=== PATIENT | female | born 1985 | race Caucasian/White ===

== ENCOUNTER 2022-04-20 09:53 | Inpatient (IN) ==
[2022-04-20] MEDS ORDERED: OXYTOCIN 30 UNITS/500 ML BAG IV PRN ×2 (12:22→13:34)
[2022-04-20] MEDS ORDERED: LACTATED RINGER'S 1,000 ML IV PRN (12:22)
[2022-04-20] MEDS ORDERED: OXYTOCIN 30 UNITS/500ML NSS ONE (12:37)
--- NOTE | 2022-04-20 12:44 | History & Physical Report ---
Date of Service April 20, 2022 Assessment & Plan (1) Active labor at term: Plan: admit, iv, labs. initial bp with dbp 90 so will check chem profile. fhts categ 1. anticip 2nd stage soon. History of Present Illness Chief Complaint: labor Primary Care Provider: NO PCP 36yo at 40+wks raudel presents to L&D with ctx. She notes contractions were q 4min and was 1cm on arrival. Then in last <30min had onset of more significant pain with ctx and nurse exam 7cm. ? rom, although no palpable membranes. +bloody show. PNC c/b 1. ama PNL rh pos, ri, GBS neg OBH: x 1 GYNH: nl paps Allergies Allergy/AdvReac Type Severity Reaction Status Date / Time No Known Allergies Allergy Verified 04/17/22 14:56 Home Medications Medication Instructions Recorded Confirmed Type prenat.vits,yisel,lxi-jcey-jhcft 1 tab PO DAILY 09/20/21 04/17/22 History Patient History Medical History (Updated 04/20/22 @ 12:43 by Barbara Delarosa MD, FACOG) History of chicken pox Surgical History (Updated 09/20/21 @ 10:58 by Marianne Wayne) No history of previous surgery Family History (Updated 09/20/21 @ 10:59 by Marianne Wayne) Father Hypertension Denies family history of Ovarian cancer Breast cancer Colorectal cancer Social History (Updated 09/20/21 @ 11:00 by Marianne Wayne) Smoking Status: Former smoker Hx Alcohol Use: No Hx Substance Use: No Preferred Language: Urdu Clinical Haematologist Required: No Beliefs That Will Affect Care: None marital status: marital status details: Phani Higgins [phone]) [phone] Current Living Situation: Spouse Current Living Situation Comment: lives with spouse, son, dog, cat-spouse changing litter current occupational status: unemployed current occupation: homemaker Other Information That Helps Us Care for You: No Feels Safe at Home: Yes Safety Concerns: Feels Safe At This Time Assistive Devices: None Review of Systems as per Subjective / HPI Physical Exam Constitutional: WD/WN, vitals as above Neurologic: grossly normal Psychiatric: A+Ox3, euthymic affect Genitourinary: Manual OB Exam: + cervical dilation 9 cm, + cervical effacement 100% and + station + 2 OB Exam Monitor Tracing: + external FHT monitor used, + external uterine monitor used (q1-2), + category I and + normal FHT variability Results & Data ([facility]) Vital Signs (Past 12 Hours) Vital Signs Temp Pulse Resp BP 04/20/22 10:43 97.9 F 20 04/20/22 10:05 97.9 F 81 20 133/90 Coding Level of Care Code None Diagnoses Active labor at term
--- NOTE | 2022-04-20 13:19 | Delivery Summary ---
Vaginal Delivery Summary Date of Service April 20, 2022 Vaginal Delivery Summary The patient dilated to complete and pushed to deliver a viable female Apgars 8 and 9 via over intact perineum. Mild shoulder dystocia encountered relieved with Alcides maneuvers and effective maternal expulsive efforts. Mouth and nose bulb suctioned at perineum. Remaining shoulder and body delivered with ease. Infant was vigorous and crying at . Cord clamped at 30 seconds of life and infant to maternal abdomen where the cord was then doubly clamped and cut. Placenta delivered spontaneously and intact, three-vessel cord. Hemostasis achieved with dilute pitocin and uterine massage and drainage of the bladder for approximately 300 cc under sterile conditions. Cervix and sulci intact. EBL 300 cc. Mother and baby stable recovery. [facility] Vaginal Delivery Charge Delivery Type Details:
[2022-04-20 13:23] LABS: Hematocrit (blood only) 33.4 % (37-47); Hemoglobin 10.8 g/dL (12.0-16.0); Mean Corpuscular Hemoglobin 26.2 pg (25-34); Mean Corpuscular Volume 80.9 fL (80-100); Mean Platelet Volume 10.3 fL (7.4-10.4); Platelet Count 233 K/uL (130-400); RDW Coefficient of Variation 14.1 % (11.5-14.5); RDW Standard Deviation 41.8 fL (36.4-46.3); Red Blood Count 4.13 M/uL (4.2-5.4); White Blood Count 16.91 K/uL (4.8-10.8)
[2022-04-20] MEDS ORDERED: DIPHTHERIA/TETANUS/PERTUSSIS 0.5 ML SYR/VIAL IM ONE (13:34)
[2022-04-20] MEDS ORDERED: ACETAMINOPHEN 325 MG TAB PO PRN (13:34)
[2022-04-20] MEDS ORDERED: bisacodyL 10 MG SUPP PR PRN (13:34)
[2022-04-20] MEDS ORDERED: BENZOCAINE 20% AER SPR 82.5 GM CAN EXT PRN (13:34)
[2022-04-20] MEDS ORDERED: HYDROCORTISONE ACETATE 25 MG SUPP PR PRN (13:34)
[2022-04-20] MEDS ORDERED: oxyCODONE/ACETAMINOPHEN 5mg/325mg TAB PO PRN (13:34)
[2022-04-20 13:40] LABS: Albumin Globulin Ratio 1.2 (0.9-2); Albumin Level 3.6 gm/dl (3.4-5.0); BUN Creatinine Ratio 14.8 (10-20); Bilirubin,Total 0.6 mg/dl (0.2-1.0); Calcium 8.8 mg/dl (8.5-10.1); Creatinine Clr Calc Pharmacy 161.8 ml/min; Est GFR (African American) 141.7 ml/min; Est GFR (Non-African American) 122.3 ml/min; Globulin 3.1 gm/dl (2.5-4.0); Potassium 3.6 mmol/L (3.5-5.1); Total Protein 6.7 gm/dl (6.0-8.3)
[2022-04-20 13:45] LABS: Mean Corpuscular Hgb Conc 32.3 g/dL (32-36)
[2022-04-20] MEDS: OXYTOCIN 20 UNITS in LACTATED RINGER'S 1,000 ML IV SCH ×2 (14:17→17:13)
[2022-04-20] MEDS ORDERED: miSOPROStoL 200 MCG TAB ONE (16:13)
[2022-04-20] MEDS ORDERED: miSOPROStoL 200 MCG TAB PR ONE (16:32)
--- NOTE | 2022-04-20 16:32 | Obstetrical Progress Note ---
Date of Service April 20, 2022 Assessment & Plan (1) Uterine atony: (2) care following vaginal delivery: Plan: bleeding d/w nurse. vitals sign stable. plan rectal cytotec and cont iv dilute pitocin. monitor bleeding. hgb added for am. pt and partner aware of working dx and plan. Admission and Anticipated Discharge Date Admission Date: April 20, 2022 Subjective called by nursing to see pt. had clot pass in L&D and since going to pp had quick gushes on 2 ice pads. pt feels well. denies dizziness, lightheadedness. nursing baby well. Review of Systems Constitutional: as per Subjective / HPI Physical Exam Constitutional: WD/WN, vitals as above Neurologic: grossly normal Psychiatric: A+Ox3, euthymic affect Genitourinary: OB Exam Abdomen: + fundal height Fundus: + firm and + relation to umbilicus (2down); not tender gentle vaginal exam, with no obvious clot small gush of dark blood rectal cytotec 800mcg placed. pt diana well. Results & Data ([facility] [place]) Vital Signs (Past 12 Hours) Vital Signs Temp Pulse Resp BP 04/20/22 15:43 67 136/75 04/20/22 15:40 98.8 F 20 04/20/22 15:18 67 130/85 04/20/22 15:17 73 20 144/91 H 04/20/22 15:02 71 129/78 04/20/22 14:56 71 190/75 H 04/20/22 14:47 82 175/90 H 04/20/22 14:32 73 177/86 H 04/20/22 14:17 74 173/94 H 04/20/22 14:02 78 157/92 H 04/20/22 13:47 86 146/83 H 04/20/22 13:45 18 04/20/22 13:32 83 148/87 H 04/20/22 13:17 78 142/81 H 04/20/22 10:43 97.9 F 20 04/20/22 10:05 97.9 F 81 20 133/90 PG Care Time/CCT Total # of Minutes Spent Total Time Spent with Patient: Total time spent is greater than 50% in coordination of care (as documented) at patient's floor/unit and/or counseling patient: Coding Level of Care Code None Diagnoses Uterine atony O62.2 care following vaginal delivery Z39.2
[2022-04-20] MEDS ORDERED: SODIUM CHLORIDE 0.9% 250 ML IV PRN (16:37)
[2022-04-20 17:34] LABS: Hemoglobin 10.7 g/dL (12.0-16.0)
[2022-04-20] MEDS: IBUPROFEN 600 MG TAB PO PRN (17:44)
[2022-04-20] MEDS: DOCUSATE SODIUM 100 MG CAP PO SCH (21:38)
[2022-04-21] MEDS: OXYTOCIN 20 UNITS in LACTATED RINGER'S 1,000 ML IV SCH (01:20)
[2022-04-21 06:32] LABS: Hematocrit (blood only) 29.4 % (37-47); Hemoglobin 9.5 g/dL (12.0-16.0)
--- NOTE | 2022-04-21 07:23 | Obstetrical Progress Note ---
Date of Service April 21, 2022 Assessment & Plan (1) care following vaginal delivery: Plan: 36yo PPD 1 s/p at 40+weeks -Continue routine care -Vitals reviewed- HDS, afebrile -GBS neg -Encourage ambulation, regular diet -Pain control with ibuprofen, acetaminophen PRN -Encourage -Hgb 9.5, stable -d/c LRs and pit -monitor BP since previously elevated s/p delivery, if elevated prior to discharge will recommend OB f/u in 1 week for BP check -otherwise f/u in 6 weeks with OB Admission and Anticipated Discharge Date Admission Date: April 20, 2022 Supervising Physician Co-Signing Physician Notes Resident Physician Supervision Note: I interviewed and examined the patient. Discussed with Dr. Don and agree with findings and plan as documented in the note. Any exceptions or clarifications are listed here: stable, bps normal this am. bleeding lessening. hgb noted this am. ok to go home later today but may need 1wk bp check, will see how bps look this am. ff 2 down nt, nt calves. Documented By: Barbara Delarosa MD, FACOG Subjective Ambulation: yes Voiding: yes Passing Gas: no BM: no Diet Tolerance: regular, denies N/V Lochia: small Feeding Type: Current Pain Level(1-10): 0 Review of Systems Review of Systems: Denies fevers/chills. Denies dyspnea, cough. Denies chest pain. Denies breast pain Denies dysuria. Denies headache. Denies back pain. Physical Exam Physical Exam: General: Alert, oriented, no acute distress Cardiac: Regular rate and rhythm, normal S1, S2. No murmurs appreciated. Respiratory: Clear to auscultation b/l with good air flow entry, symmetric chest rise and fall. No wheezes or crackles. No increased work of breathing or accessory muscle use Abdomen: Soft, nontender, nondistended. Fundus firm and palpable at 2 cm below umbilicus. No guarding or rebound. Skin: No rashes or lesions Extremities: Warm, dry, well-perfused with capillary refill <2s b/l. No lower extremity edema, erythema or swelling. Negative Darwin's sign b/l. Results & Data ([facility]) Vital Signs (Past 12 Hours) Vital Signs Temp Pulse Resp BP Pulse Ox 04/21/22 04:15 36.7 C 72 20 123/86 04/20/22 23:56 127/85 04/20/22 22:55 36.9 C 74 16 150/82 H 97 04/20/22 22:03 36.9 C 04/20/22 21:37 80 125/80 Resident Activity Tracking Resident Involvement: Resident Care Provided Care Provided: OB Delivery
[2022-04-21] MEDS ORDERED: PRENATAL VITAMIN 1 TAB PO SCH (08:00)
[2022-04-21] MEDS: IBUPROFEN 600 MG TAB PO PRN ×2 (09:24)
[2022-04-21] MEDS: DOCUSATE SODIUM 100 MG CAP PO SCH (09:24)
== END 2022-04-21 14:40 | disposition home or self-care (01) | DRG 807 ==
LOC: OPB 09:53 → 4S1 09:55 → 4E2 17:49